=== PATIENT | female | born 1950 | race Hispanic/Latino ===

== ENCOUNTER → 2022-09-11 | Outpatient (CLI) | payer OTHER ==
[~2022-09-11] MED LIST: REGADENOSON 0.4 MG/5 ML PF SYG IVP SCH
== END | disposition home or self-care (01) ==
LOC: RAH 08:46
PROVIDERS: ATTEND Internal Medicine
DX: R07.9 Chest pain, unspecified (principal)
CPT/HCPCS: 78452; 96374; 93017; J2785; A9500 ×2

== ENCOUNTER → 2025-02-01 | Outpatient (CLI) | payer OTHER ==
--- NOTE | 2025-02-01 12:35 | HMCIMG ---
DEXA BONE DENSITY SURVEY HISTORY: Menopause COMPARISON: None FINDINGS: Bone densitometry study was performed. Bone mineral density of the lumbar spine is 0.814 gram per centimeter square which corresponds to a T score of -2.1 and a Z score of 0.2. Bone mineral density of the left hip is 0.729 grams per centimeter square which corresponds to a T score of -1.7 and a Z score of 0.0. IMPRESSION: 1. Normal bone mineral density of the lumbar spine and left hip.
== END | disposition home or self-care (01) ==
LOC: RAH 08:34
PROVIDERS: ATTEND Internal Medicine
DX: M85.89 Other specified disorders of bone density and structure, multiple sites (principal); Z78.0 Asymptomatic menopausal state
CPT/HCPCS: 77080

== ENCOUNTER → 2025-02-17 | Outpatient (CLI) | payer OTHER ==
--- NOTE | 2025-02-17 15:53 | HMCSR ---
APPROVED REPORT EXAM: Two-dimensional and M-mode echocardiogram with Doppler and color Doppler. INDICATION ICD: I38.0 2D Dimensions RVDd3.5 cmLVEF(%)66.3 (>50%)LVED Vol(simp.)69.0 mL IVSd1.0 (0.7-1.1cm)FS(%)36 %LVES Vol(simp.)26.0 mL LVDd3.7 (3.8-5.6cm)LA (2D)3.6 (1.6-4.0cm)LVEF(%, simp.)63 % PWd0.6 (0.7-1.1cm)Ao Root(2D)3.5 (2.0-3.7cm)LA ESV INDEX (BP)25.28 mL/m2 IVSs0.8 cmLVOT diam1.9 (1.8-2.4cm) LVDs2.4 (2.5-4.0cm)IVC diam1.3 cm PWs1.1 cm M-Mode Dimensions EPSS0.8 cm LA (MM)4.2 (1.6-4.0cm) Ao Root(MM)2.7 (2.0-3.7cm) Aortic Valve AoV Vmax1.8 m/Jacoby Peak GR13.3 mmHgLVOT Vmax1.2 m/s AoV VTI0.4 mAo Mean GR8.3 mmHgLVOT VTI0.26 m YUDITH (VMAX)1.91 cm2AVA (VTI) 1.9 cm2 Mitral Valve MV E Sltk576.9 cm/sDECEL Uqzu945 ms MV A Indr931.4 cm/sP 1/2 T81 ms E/A ratio0.8MVA (PHT)2.7 cm2 TDI E/E' Qjptss26.0E/E' Wvytkcf80.2 Medial E' Peak V5.34 cm/sLateral E' Peak V6.20 cm/s Pulmonary Valve PV Vmax1.2 m/sPV VTI0.24 mPV Mean GR3.8 mmHg PV Peak GR6.1 mmHg Tricuspid Valve TR Vmax1.5 m/sRAP (EST) 3 pkYfWLFE20.0 mmHg TR Peak GR9.0 mmHg Left Ventricle The left ventricle is normal size. . There is normal left ventricular wall thickness. LVEF is 60-65%. Stage I diastolic dysfunction. Right Ventricle The right ventricle is normal size. The right ventricular systolic function is normal. Atria The left atrium size is normal. The right atrium size is normal. Aortic Valve Aortic valve is trileaflet and opens well. No aortic regurgitation is present. There is no aortic [place] vular stenosis. Mitral Valve The mitral valve is normal in structure. There is trace of mitral valve regurgitation noted. There is no mitral valve stenosis. Tricuspid Valve The tricuspid valve is normal in structure. There is no tricuspid valve regurgitation noted. Pulmonic Valve The pulmonary valve is normal in structure. There is mild pulmonic valvular regurgitation. Great Vessels The aortic root is normal in size. The IVC is normal in size and collapses >50% with inspiration. Pericardium There is no pericardial effusion. Other Information Quality : Adequate Conclusion LVEF is 60-65%. Stage I diastolic dysfunction. There is trace of mitral valve regurgitation noted.
== END | disposition home or self-care (01) ==
LOC: RAH 12:11
PROVIDERS: ATTEND Internal Medicine
DX: I37.1 Nonrheumatic pulmonary valve insufficiency (principal); I11.9 Hypertensive heart disease without heart failure; I38 Endocarditis, valve unspecified
CPT/HCPCS: 93306